=== PATIENT | female | born 1930 | race Caucasian/White ===

== ENCOUNTER 2016-04-25 10:41 | Day surgery (SDC) | payer MEDICARE, OTHER ==
[2016-04-25] MEDS ORDERED: LACTATED RINGERS 1,000 ML IV ONE ×2 (11:20→14:53)
[2016-04-25] MEDS ORDERED: ceFAZolin 1 GM VIAL ONE (11:43)
[2016-04-25] MEDS ORDERED: MIDAZOLAM 2 MG/2 ML VIAL IVP ONE (14:00)
[2016-04-25] MEDS ORDERED: LIDOCAINE-MPF 2% 5 ML VIAL IM ONE (14:00)
[2016-04-25] MEDS ORDERED: DEXAMETHASONE 4 MG/ML VIAL IVP ONE (14:00)
[2016-04-25] MEDS ORDERED: PROPOFOL 200 MG/20 ML VIAL IVP ONE (14:00)
[2016-04-25] MEDS ORDERED: BUPIVACAINE 0.25% PF 30 ML VIAL SUBQ ONE (14:00)
[2016-04-25] MEDS ORDERED: ONDANSETRON 4 MG/2 ML VIAL IVP ONE (14:00)
[2016-04-25] MEDS: fentaNYL 100 MCG/2 ML VIAL ONE ×3 (15:48→16:22)
[2016-04-25] MEDS ORDERED: KETOROLAC 15 MG/ML VIAL ONE (16:08)
[2016-04-25] MEDS ORDERED: HYDROcod/ACETAM 5/325 MG TABLET ONE (16:45)
== END 2016-04-25 10:42 | disposition home or self-care (01) ==
PROC: 0PSJ04Z Reposition Left Radius with Internal Fixation Device, Open Approach (ICD-10-PCS; principal; 2016-04-25 12:00)
DX: S52.532A Colles' fracture of left radius, initial encounter for closed fracture (principal); I10 Essential (primary) hypertension; M81.0 Age-related osteoporosis without current pathological fracture; R73.01 Impaired fasting glucose
CPT/HCPCS: 25609; A9270; J7120

== ENCOUNTER 2017-02-09 11:00 | Outpatient (CLI) | payer MEDICARE, OTHER ==
--- NOTE | 2017-02-12 13:46 | Mammography Report ---
DIGITAL SCREENING MAMMOGRAM: 02/09/2017 CLINICAL INDICATION: An 86-year-old for screening. COMPARISON: 12/2015, 04/2014, 04/2013, 02/2010 TECHNIQUE: Routine CC and MLO projections were obtained of the breasts. FINDINGS: The breasts again demonstrate heterogeneously dense fibroglandular parenchyma bilaterally. Coarse and punctate, typically benign calcifications are present. No suspicious masses, clustered microcalcifications, or regions of architectural distortion are identified. IMPRESSION: BENIGN FINDINGS. RECOMMENDATION: Routine annual screening unless otherwise clinically indicated. BIRADS CATEGORY 2 - BENIGN FINDINGS. STANDARD QUALIFYING STATEMENTS 1. This examination was reviewed with the aid of Computer-Aided Detection (CAD). 2. A negative or benign imaging report should not delay biopsy if clinically suspicious findings are present. Consider surgical consultation if warranted. More than 5% of cancers are not identified by i maging. 3. Dense breasts may obscure an underlying neoplasm. JOB #: [id number] EXT JOB #:[id number]
== END 2017-02-09 11:01 | disposition home or self-care (01) ==
LOC: DI.N 11:00
PROVIDERS: ATTEND Family Medicine
DX: Z12.31 Encounter for screening mammogram for malignant neoplasm of breast (principal)
CPT/HCPCS: 77067

== ENCOUNTER 2017-08-28 08:00 | Outpatient (CLI) | payer MEDICARE, OTHER ==
[2017-08-28 13:17] LABS: ALBUMIN 3.6 g/dL (3.2-5.5); ALKALINE PHOSPHATASE 40 IU/L (42-121); ALT ALANINE AMINOTRANSFERASE 28 IU/L (10-60); AST ASPARTATE AMINOTRANSFERASE 30 IU/L (10-42); BUN - BLOOD UREA NITROGEN 13 mg/dL (6-20); CALCIUM 9.3 mg/dL (8.5-10.3); CARBON DIOXIDE - CO2 27 mmol/L (21-32); CHLORIDE 107 mmol/L (101-111); CHOL/HDL RATIO 2.5 (<4.4); CHOLESTEROL 158 mg/dL; CREATININE 0.6 mg/dL (0.4-1.0); GFR - MDRD 95 (>89); GLUCOSE 105 mg/dL (70-100); HDL CHOLESTEROL 64 mg/dL; LDL CHOLESTEROL,CALCULATED 77 mg/dL; LDL/HDL RATIO 1.2 (<4.4); SODIUM 139 mmol/L (135-145); TOTAL PROTEIN 7.3 g/dL (6.7-8.2); VLDL CHOLESTEROL 17 mg/dL
[2017-08-28 19:50] LABS: HB2 TOTAL 13.6 g/dL; HEMOGLOBIN A1C 0.48 g/dL; HEMOGLOBIN A1C % 5.4 % (4.6-6.2)
== END 2017-08-28 08:01 | disposition home or self-care (01) ==
LOC: LAB.WCP 08:00
PROVIDERS: ATTEND Family Medicine
DX: Z00.00 Encounter for general adult medical examination without abnormal findings (principal); I10 Essential (primary) hypertension; R73.01 Impaired fasting glucose; Z83.79 Family history of other diseases of the digestive system; D64.9 Anemia, unspecified
CPT/HCPCS: 36415; 80053; 80061; 83036; 83721

== ENCOUNTER 2018-03-14 10:21 | Outpatient (CLI) | payer MEDICARE, OTHER ==
--- NOTE | 2018-03-15 08:14 | Mammography Report ---
Reason: SCREENING MAMMO Procedure Date: 03/14/2018 Accession Number: [id number] / [id number] Procedure: MGN - Screening Mammo Dig Bilat CPT Code: FULL RESULT: EXAM: Screening Mammo Dig Bilat DATE: 03/14/2018 10:47 AM CLINICAL HISTORY: Screening. No reported personal or family history of breast cancer. TECHNIQUE: Bilateral CC and MLO views were obtained. COMPARISON: 02/09/2017 through 05/05/2013 FINDINGS: The breasts demonstrate heterogeneously dense fibroglandular parenchyma bilaterally. Bilateral breasts: There are no suspicious masses, calcifications or areas of distortion. IMPRESSION: Negative examination RECOMMENDATION: Routine annual screening unless otherwise clinically indicated. BI-RADS CATEGORY 1: Negative STANDARD QUALIFYING STATEMENTS: 1. This examination was reviewed with the aid of Computer-Aided Detection (CAD). 2. A negative or benign imaging report should not preclude biopsy if clinically suspicious findings are present. 3. Dense breasts may obscure an underlying neoplasm. 4. This examination was reviewed without the aid of 3D breast imaging (tomosynthesis).
== END 2018-03-14 10:22 | disposition home or self-care (01) ==
LOC: DI.N 10:21
DX: Z12.31 Encounter for screening mammogram for malignant neoplasm of breast (principal)
CPT/HCPCS: 77067

== ENCOUNTER 2019-04-15 09:59 | Outpatient (CLI) | payer MEDICARE, OTHER ==
--- NOTE | 2019-04-15 13:14 | Mammography Report ---
Reason: ROUTINE MAMMO Procedure Date: 04/15/2019 Accession Number: [id number] / [id number] Procedure: MGN - Screening Mammo Dig Bilat CPT Code: Final Report FULL RESULT: EXAM: Screening Mammo Dig Bilat DATE: 04/15/2019 10:22 AM CLINICAL HISTORY: Routine screening TECHNIQUE: (B) - Bilateral CC and MLO views were obtained. COMPARISON: 03/14/2018, 02/09/2017, 01/04/2016, 05/15/2014, 05/05/2013, 03/07/2010. PARENCHYMAL PATTERN: (VD) - The breasts demonstrate extremely dense parenchyma bilaterally, limiting the sensitivity of mammography. FINDINGS: No significant interval change. There are no suspicious masses, calcifications, or areas of distortion. Benign-appearing predominantly vascular calcifications are stable. IMPRESSION: Negative examination. BI-RADS category 1. RECOMMENDATION: (ANNUAL) - Recommend routine annual screening mammography. BI-RADS CATEGORY: (1) - Negative. STANDARD QUALIFYING STATEMENTS: 1. This examination was not reviewed with the aid of Computer-Aided Detection (CAD). 2. A negative or benign imaging report should not preclude biopsy if clinically suspicious findings are present. 3. Dense breasts may obscure an underlying neoplasm. 4. This examination was reviewed without the aid of 3D breast imaging (tomosynthesis).
== END 2019-04-15 10:00 | disposition home or self-care (01) ==
LOC: DI.N 09:59
DX: Z12.31 Encounter for screening mammogram for malignant neoplasm of breast (principal)
CPT/HCPCS: 77067

== ENCOUNTER 2020-07-12 08:00 | Outpatient (CLI) | payer MEDICARE, OTHER ==
[2020-07-12 11:57] LABS: BASOPHILS % (AUTO) 0.6 %; EOSINOPHILS # (AUTO) 0.1 10^3/uL (0.0-0.7); EOSINOPHILS % (AUTO) 1.9 %; HCT - HEMATOCRIT 41.3 % (37.0-47.0); HGB - HEMOGLOBIN 13.3 g/dL (12.0-16.0); LYMPHOCYTES # (AUTO) 1.7 10^3/uL (1.5-3.5); LYMPHOCYTES % (AUTO) 27.4 %; MEAN CORPUSCULAR HEMOGLOBIN 32.8 pg (27.0-31.0); MEAN CORPUSCULAR HGB CONC 32.2 g/dL (32.0-36.0); MEAN CORPUSCULAR VOLUME 101.7 fL (81.0-99.0); MEAN PLATELET VOLUME 10.4 fL (7.9-10.8); MONOCYTES # (AUTO) 0.5 10^3/uL (0.0-1.0); MONOCYTES % (AUTO) 7.9 %; NEUTROPHILS # (AUTO) 3.8 10^3/uL (1.5-6.6); NEUTROPHILS % (AUTO) 61.9 %; PLT - PLATELET COUNT 171 10^3/uL (130-450); RED BLOOD COUNT 4.06 10^6/uL (4.20-5.40); RED CELL DISTRIBUTION WIDTH 13.7 % (12.0-15.0); WHITE BLOOD COUNT 6.2 x10^3/uL (4.8-10.8)
[2020-07-12 12:29] LABS: ESTIMATED AVERAGE GLUCOSE 111 mg/dL (70-100); HEMOGLOBIN A1c% 5.5 % (4.27-6.07)
[2020-07-12 13:18] LABS: ALBUMIN 3.9 g/dL (3.2-5.5); ALBUMIN/GLOBULIN RATIO 1.1 (1.0-2.2); ALKALINE PHOSPHATASE 50 IU/L (42-121); ALT ALANINE AMINOTRANSFERASE 42 IU/L (10-60); AST ASPARTATE AMINOTRANSFERASE 43 IU/L (10-42); BILIRUBIN,TOTAL 0.6 mg/dL (0.2-1.0); BUN - BLOOD UREA NITROGEN 13 mg/dL (6-20); CALCIUM 9.6 mg/dL (8.5-10.3); CARBON DIOXIDE - CO2 28 mmol/L (21-32); CHLORIDE 109 mmol/L (101-111); CHOL/HDL RATIO 2.4 (<4.4); CHOLESTEROL 172 mg/dL; CREATININE 0.7 mg/dL (0.4-1.0); GFR - MDRD 79 (>89); GLUCOSE 105 mg/dL (70-100); HDL CHOLESTEROL 71 mg/dL; LDL CHOLESTEROL,CALCULATED 85 mg/dL; LDL/HDL RATIO 1.2 (<4.4); POTASSIUM 3.6 mmol/L (3.5-5.0); SODIUM 144 mmol/L (135-145); TOTAL PROTEIN 7.6 g/dL (6.7-8.2); TRIGLYCERIDES 82 mg/dL; VLDL CHOLESTEROL 16 mg/dL
== END 2020-07-12 23:59 | disposition home or self-care (01) ==
LOC: LAB.WCP 08:00
PROVIDERS: ATTEND Family Medicine
DX: Z00.00 Encounter for general adult medical examination without abnormal findings (principal); R73.01 Impaired fasting glucose; D64.9 Anemia, unspecified; I10 Essential (primary) hypertension
CPT/HCPCS: 36415; 80053; 80061; 83036; 83721; 85025

== ENCOUNTER 2021-01-18 10:22 | Outpatient (CLI) | payer MEDICARE, OTHER ==
--- NOTE | 2021-01-27 00:07 | XRAY Report ---
PROCEDURE: Abdomen 2 View X-Ray INDICATIONS: CONSTIPATION TECHNIQUE: 1 view of the abdomen were acquired. Images became available for interpretation on 2020. COMPARISON: None FINDINGS: Surgical changes and devices: None. Bowel: No pneumoperitoneum. The bowel gas pattern demonstrates significant colonic stool. Soft tissues: No masses; visualized solid organ contours appear normal in size. No suspicious abdom inal calcifications. Bones: No suspicious bony abnormalities. Mild leftward scoliotic curvature. IMPRESSION: Significant colonic stool consistent with constipation. No obstruction. Reviewed by: Qiana Montana MD on 01/27/2021 12:05 AM PDT Approved by: Qiana Montana MD on 01/27/2021 12:05 AM PDT Station ID: [id number]
== END 2021-01-18 23:59 ==
LOC: DI.N 10:22
PROVIDERS: ATTEND Physician Assistant Medical
DX: K59.00 Constipation, unspecified (principal)

== ENCOUNTER 2021-04-12 10:28 | Outpatient (CLI) | payer MEDICARE, OTHER ==
[2021-04-12 18:12] LABS: BASOPHILS % (AUTO) 0.6 %; EOSINOPHILS # (AUTO) 0.1 10^3/uL (0.0-0.7); EOSINOPHILS % (AUTO) 1.9 %; HCT - HEMATOCRIT 41.2 % (37.0-47.0); HGB - HEMOGLOBIN 13.1 g/dL (12.0-16.0); LYMPHOCYTES # (AUTO) 1.3 10^3/uL (1.5-3.5); LYMPHOCYTES % (AUTO) 20.7 %; MEAN CORPUSCULAR HEMOGLOBIN 33.2 pg (27.0-31.0); MEAN CORPUSCULAR HGB CONC 31.8 g/dL (32.0-36.0); MEAN CORPUSCULAR VOLUME 104.6 fL (81.0-99.0); MEAN PLATELET VOLUME 10.8 fL (7.9-10.8); MONOCYTES # (AUTO) 0.5 10^3/uL (0.0-1.0); MONOCYTES % (AUTO) 8.4 %; NEUTROPHILS # (AUTO) 4.3 10^3/uL (1.5-6.6); NEUTROPHILS % (AUTO) 68.2 %; PLT - PLATELET COUNT 148 10^3/uL (130-450); RED BLOOD COUNT 3.94 10^6/uL (4.20-5.40); RED CELL DISTRIBUTION WIDTH 14.2 % (12.0-15.0); WHITE BLOOD COUNT 6.3 x10^3/uL (4.8-10.8)
[2021-04-12 18:40] LABS: ALBUMIN 3.6 g/dL (3.2-5.5); BILIRUBIN,TOTAL 0.8 mg/dL (0.2-1.0); CALCIUM 9.2 mg/dL (8.5-10.3); CREATININE 0.8 mg/dL (0.4-1.0); POTASSIUM 3.9 mmol/L (3.5-5.0); TOTAL PROTEIN 7.2 g/dL (6.7-8.2)
[2021-04-12 18:43] LABS: THYROID STIMULATING HORMONE 2.28 uIU/mL (0.34-5.60)
[2021-04-12 18:45] LABS: FREE T3 2.94 pg/mL (2.5-3.9); FREE T4 (FREE THYROXINE) 0.89 ng/dL (0.58-1.64)
== END 2021-04-12 10:29 | disposition home or self-care (01) ==
LOC: LAB.N 10:28
PROVIDERS: ATTEND Family Medicine
DX: R19.4 Change in bowel habit (principal); R63.4 Abnormal weight loss
CPT/HCPCS: 36415; 80053; 84439; 84443; 84481; 85025

== ENCOUNTER 2021-10-17 12:59 | Emergency (ER) | payer MEDICARE, OTHER ==
[2021-10-17 13:43] LABS: BASOPHILS % (AUTO) 0.3 %; HCT - HEMATOCRIT 39.6 % (37.0-47.0); HGB - HEMOGLOBIN 13.3 g/dL (12.0-16.0); LYMPHOCYTES # (AUTO) 1.3 10^3/uL (1.5-3.5); MEAN CORPUSCULAR HEMOGLOBIN 33.4 pg (27.0-31.0); MEAN CORPUSCULAR HGB CONC 33.6 g/dL (32.0-36.0); MEAN CORPUSCULAR VOLUME 99.5 fL (81.0-99.0); MEAN PLATELET VOLUME 9.5 fL (7.9-10.8); MONOCYTES # (AUTO) 0.6 10^3/uL (0.0-1.0); MONOCYTES % (AUTO) 5.9 %; NEUTROPHILS # (AUTO) 8.8 10^3/uL (1.5-6.6); NEUTROPHILS % (AUTO) 81.2 %; PLT - PLATELET COUNT 164 10^3/uL (130-450); RED BLOOD COUNT 3.98 10^6/uL (4.20-5.40); RED CELL DISTRIBUTION WIDTH 13.3 % (12.0-15.0); WHITE BLOOD COUNT 10.9 x10^3/uL (4.8-10.8)
[2021-10-17 13:50] LABS: INR 1.1 (0.8-1.2); PT - PROTHROMBIN TIME 12.1 secs (9.9-12.6)
[2021-10-17 13:55] LABS: ALBUMIN 3.7 g/dL (3.2-5.5); BILIRUBIN,TOTAL 0.7 mg/dL (0.2-1.0); CALCIUM 9.1 mg/dL (8.5-10.3); CREATININE 0.7 mg/dL (0.4-1.0); POTASSIUM 3.7 mmol/L (3.5-5.0); TOTAL PROTEIN 7.3 g/dL (6.7-8.2)
--- NOTE | 2021-10-17 15:18 | ED Physician Documentation ---
PD HPI GI BLEED - Stated complaint Stated Complaint: FEMALE GI - Chief complaint Chief Complaint: Abd Pain - History obtained from History obtained from: Patient - History of Present Illness Timing - onset: Today (onset at 4 am of lower abd cramping associated with loose stool and red blood.) Timing - duration: Hours Timing - details: Abrupt onset, Still present Associated symptoms: BRBPR, Abdominal pain (lower cramping). No: Vomiting, Coffee ground emesis, Black/tarry stool, Chest pain Contributing factors: No: Sick contact, Bad food, Anticoagulated Improved by: BM (lower cramping before rectal movement of some blood and mucous. not consistent pain.) Worsened by: No: Moving, Position, Palpation Similar symptoms before: Has not had sx before Recently seen: Clinic (went to Walk In and was referred to ER for eval.) Review of Systems Constitutional: denies: Fever, Chills Nose: denies: Rhinorrhea / runny nose, Congestion Throat: denies: Sore throat Respiratory: denies: Cough PD PAST MEDICAL HISTORY - Past Medical History Cardiovascular: Hypertension Respiratory: None Endocrine/Autoimmune: None GI: None : None HEENT: Glaucoma, Chronic hearing loss Psych: Depression Musculoskeletal: Osteoarthritis Derm: None - Past Surgical History Past Surgical History: Yes General: Colonoscopy HEENT: Cataracts, Other - Present Medications Home Medications: Ambulatory Orders Medication Instructions Recorded Confirmed Losartan [Cozaar] 50 mg PO DAILY 05/10/14 05/10/14 Raloxifene [Evista] 60 mg PO DAILY 05/10/14 04/25/16 Ondansetron Odt [Zofran Odt] 4 mg TL Q6H PRN #10 tablet 05/11/14 Brinzolamide 1% Ophth Drops [Azopt 1 drops EACHEYE TID 04/25/16 04/25/16 1% Ophth Drops] Felodipine [Felodipine ER] 10 mg ORAL DAILY 04/25/16 04/25/16 HYDROcod/ACETAM 5/325 [[place] 5/325] 1 tab ORAL Q6HR PRN 04/25/16 04/25/16 Latanoprost 0.005% Ophth Drops 1 drops EACHEYE DAILY 04/25/16 04/25/16 [Xalatan Ophth Drops] Propylene Glycol/Peg 400 [Systane 1 drops EACHEYE TID 04/25/16 04/25/16 Ultra 0.4-0.3% Eye Drp] Amox/Clav 875/125 [Augmentin] 1 each PO Q12H #10 tablet 10/17/21 HYDROcod/ACETAM 5/325 [[place] 5/325] 1 ea PO Q6H PRN #12 tablet 10/17/21 Naproxen 250 mg PO BID 5 Days #10 tablet 10/17/21 - Allergies Allergies/Adverse Reactions: Allergies Allergy/AdvReac Type Severity Reaction Status Date / Time No Known Drug Allergies Allergy Verified 10/17/21 13:26 - Social History Does the pt smoke?: No Smoking Status: Never smoker - Immunizations Immunizations are current?: No - POLST Patient has POLST: No PD ED PE NORMAL - Vitals Vital signs reviewed: Yes - General General: Alert and oriented X 3, No acute distress, Well developed/nourished - Neck Neck: Supple, no meningeal sign, No adenopathy - Cardiac Cardiac: RRR, No murmur - Respiratory Respiratory: Clear bilaterally - Abdomen Abdomen: Normal bowel sounds, Soft, Non distended, No organomegaly, Other (minimal tenderness lower abd more to the left. No guarding nor percussion tender. Anoscopy shows small internal hemorrhoid without bleeding. Distal colon inflammed with speckled blood spots. Has vascular pink color to wall. ) Results - Vitals Vitals: Vital Signs - 24 hr 10/17/21 10/17/21 10/17/21 13:19 15:37 16:54 Temperature 36.3 C L Heart Rate 83 75 77 Respiratory 18 14 14 Rate Blood Pressure 137/79 H 156/80 H 151/75 H O2 Saturation 97 100 100 10/17/21 18:01 Temperature Heart Rate 74 Respiratory 18 Rate Blood Pressure 145/83 H O2 Saturation 100 Oxygen O2 Source Room air - Labs Labs: Laboratory Tests 10/17/21 10/17/21 10/17/21 13:31 13:31 13:31 WBC 10.9 H RBC 3.98 L Hgb 13.3 Hct 39.6 MCV 99.5 H MCH 33.4 H MCHC 33.6 RDW 13.3 Plt Count 164 MPV 9.5 Neut # (Auto) 8.8 H Lymph # (Auto) 1.3 L [place] # (Auto) 0.6 Eos # (Auto) 0.0 Baso # (Auto) 0.0 Absolute Nucleated RBC 0.00 Nucleated RBC % 0.0 PT 12.1 INR 1.1 Sodium Potassium Chloride Carbon Dioxide Anion Gap BUN Creatinine Estimated GFR (MDRD) Glucose Calcium Total Bilirubin AST ALT Alkaline Phosphatase Total Protein Albumin Globulin Albumin/Globulin Ratio Lipase Blood Type O POSITIVE Antibody Screen NEGATIVE 10/17/21 13:31 WBC RBC Hgb Hct MCV MCH MCHC RDW Plt Count MPV Neut # (Auto) Lymph # (Auto) [place] # (Auto) Eos # (Auto) Baso # (Auto) Absolute Nucleated RBC Nucleated RBC % PT INR Sodium 141 Potassium 3.7 Chloride 105 Carbon Dioxide 28 Anion Gap 8.0 BUN 12 Creatinine 0.7 Estimated GFR (MDRD) 79 L Glucose 142 H Calcium 9.1 Total Bilirubin 0.7 AST 38 ALT 31 Alkaline Phosphatase 39 L Total Protein 7.3 Albumin 3.7 Globulin 3.6 Albumin/Globulin Ratio 1.0 Lipase 49 Blood Type Antibody Screen - Rads (name of study) abd/pelvic CT Radiology: Prelim report reviewed (IMPRESSION: ), See rad report PD MEDICAL DECISION MAKING - ED course Complexity details: reviewed results (IMPRESSION: ), re-evaluated patient (stable vitals. Good blood count. has had small red blood output here in ER, but only about 5-10 ml. Anoscopy shows inflammed distal colon with vascular color. Small internal hemorrhoid but does not appear bleeding. ), considered differential (having lower abd pain and red blood per rectum. Consider colitis, diverticulitis, versus vascular like polyp/tumor with bleeding. ), d/w patient ED course: IMPRESSION: 1. Left colon long segment colitis. This could be due to infectious/inflammatory etiology. Ischemic colitis is felt to be less likely. Follow-up colonoscopy would be helpful if not recently performed. 2. Hypodense foci in the body and neck of the pancreas. Largest measuring 1.5 x 0.6 cm. These could represent IPMN. This can be further evaluated with MRI of the pancreas if clinically indicated in this older patient. Departure - Departure Disposition: 01 Home, Self Care Clinical Impression: Hematochezia, Colitis Condition: Stable Record reviewed to determine appropriate education?: Yes Prescriptions: Amox/Clav 875/125 [Augmentin] 1 each PO Q12H #10 tablet Naproxen 250 mg PO BID 5 Days #10 tablet HYDROcod/ACETAM 5/325 [[place] 5/325] 1 ea PO Q6H PRN #12 tablet PRN Reason: Pain Comments: IMPRESSION: 1. Left colon long segment colitis. This could be due to infectious/inflammatory etiology. Ischemic colitis is felt to be less likely. Follow-up colonoscopy would be helpful if not recently performed. 2. Hypodense foci in the body and neck of the pancreas. Largest measuring 1.5 x 0.6 cm. These could represent IPMN. This can be further evaluated with MRI of the pancreas if clinically indicated in this older patient. Your CT scan shows an area of colitis. We will treat this with anti- inflammatories and antibiotics. This would be the obvious source of bleeding and typically is more diffuse weeping of blood as opposed to a particular blood vessel. Your blood count and vital signs are good at this time. You would expect some bleeding still with bowel movements while the colitis is improving. Return to the ER if you have significantly worsening bleeding or in particular for feeling generally weak and lightheaded. Otherwise it would be good to recheck in a couple of days with either your primary care, the walk-in clinic, or back in the ER. Tylenol if needed for pains or add hydrocodone if needed for worse pain. On the CT scan, the radiologist also makes note of a unusual small appearance in the pancreas. They suggest this can be further evaluated with MRI of the pancreas in the near future to ensure its not a tumor type lesion. This would need to be arranged by your primary care on an outpatient basis. I transmitted your prescriptions to your pharmacy. I am prescribing a short course of narcotic pain medication for you. These are potentially dangerous and addictive medications that should be used carefully. These medications may constipate you. Take an [id number]-nkiyxtm stool softener such as docusate twice daily with plenty of water while taking these medications. If you go 24 hours without a bowel movement, take [id number]-[id number] MiraLAX, per package instructions. Do not drink or drive while taking these medications. If you received narcotic or sedating medications while in the emergency department do not drive for 24 hours. Store this medication in a safe, secure place and out of reach of children. It is a violation of federal law to give or sell this medication to another person or to use in a manner other than prescribed. The ED will not refill narcotic prescriptions, including prescriptions lost or stolen. You can dispose of unwanted medications at the Medical Staff Physician's office or at several pharmacies such as [facility]. Discharge Date/Time: 10/17/21 18:03
--- NOTE | 2021-10-17 17:23 | CT Report ---
PROCEDURE: Abdomen/Pelvis WO INDICATIONS: lower abd cramps/pain and BRBPR TECHNIQUE: Noncontrast 5 mm thick sections acquired from the diaphragms to the symphysis. 5 mm coronal and sagi ttal reformats were then performed. For radiation dose reduction, the following was used: automated exposure control, adjustment of mA and/or kV according to patient size. COMPARISON: Abdominal radiographs 01/18/2021. FINDINGS: Image quality: Excellent. Evaluation of the solid parenchymal organs is limited without IV contrast. ABDOMEN: Lung bases: No pleural effusion. Mild fibrosis. Heart size is normal. Solid organs: Liver and spleen are normal in size. Gallbladder is unremarkable. Hypodensity in the body of the pancreas measuring 0.8 cm. Hypodensity in the neck of the pancreas measuring 1.5 x 0.6 cm . No peripancreatic fluid collection. No adrenal nodules. Kidneys are normal in size, without hydron ephrosis or nephrolithiasis. Small low-density left renal cyst. Peritoneum and bowel: There is thickening and stranding surrounding extending from the sigmoid colon to the mid transverse colon. This is consistent with a colitis. There are a few colonic diverticuli. No small bowel obstruction. No pneumatosis intestinalis. No portal venous gas. No pneumoperitoneum. N o ascites. Nodes and vessels: No retroperitoneal or mesenteric adenopathy by size criteria. Aorta and inferior vena cava are normal in caliber. Miscellaneous: No ventral hernias. PELVIS: Genitourinary: Bladder wall thickness is normal. Anteverted uterus. Miscellaneous: No inguinal hernias or adenopathy. Bones: No suspicious bony lesions. Scoliosis. No vertebral body compression fractures. IMPRESSION: 1. Left colon long segment colitis. This could be due to infectious/inflammatory etiology. Ischemic c olitis is felt to be less likely. Follow-up colonoscopy would be helpful if not recently performed. 2. Hypodense foci in the body and neck of the pancreas. Largest measuring 1.5 x 0.6 cm. These could r epresent IPMN. This can be further evaluated with MRI of the pancreas if clinically indicated in this older patient. Results were communicated to Dr. Carlos Manuel Flor at 10/17/2021 5:16 PM PDT. Reviewed by: Ady Mederos MD on 10/17/2021 5:21 PM PDT Approved by: Ady Mederos MD on 10/17/2021 5:21 PM PDT Station ID: [id number]
[2021-10-17] MEDS ORDERED: HYDROcod/ACETAM 5/325 MG TABLET PO STA (17:27)
[2021-10-17] MEDS ORDERED: AMOX/CLAV 875 MG/125 MG TABLET PO STA (17:27)
[2021-10-17] MEDS ORDERED: NAPROXEN 250 MG TABLET PO STA (17:28)
[2021-10-17 18:03] VITALS: BP 145/83
== END 2021-10-17 18:03 | disposition home or self-care (01) ==
LOC: ED 12:59
DX: K52.9 Noninfective gastroenteritis and colitis, unspecified (principal); K92.1 Melena; I10 Essential (primary) hypertension
CPT/HCPCS: 36415; 74176; 80053; 83690; 85025; 85610; 86850; 86900; 86901; 99284; A9270

== ENCOUNTER 2021-10-19 13:44 | Outpatient (CLI) | payer MEDICARE, OTHER ==
[2021-10-19 17:46] LABS: BASOPHILS % (AUTO) 0.2 %; EOSINOPHILS # (AUTO) 0.2 10^3/uL (0.0-0.7); EOSINOPHILS % (AUTO) 1.1 %; HCT - HEMATOCRIT 36.6 % (37.0-47.0); HGB - HEMOGLOBIN 12.4 g/dL (12.0-16.0); LYMPHOCYTES # (AUTO) 2.1 10^3/uL (1.5-3.5); MEAN CORPUSCULAR HGB CONC 33.9 g/dL (32.0-36.0); MEAN CORPUSCULAR VOLUME 100.3 fL (81.0-99.0); MEAN PLATELET VOLUME 10.5 fL (7.9-10.8); MONOCYTES # (AUTO) 0.9 10^3/uL (0.0-1.0); MONOCYTES % (AUTO) 5.6 %; NEUTROPHILS % (AUTO) 79.5 %; PLT - PLATELET COUNT 176 10^3/uL (130-450); RED BLOOD COUNT 3.65 10^6/uL (4.20-5.40); RED CELL DISTRIBUTION WIDTH 13.2 % (12.0-15.0); WHITE BLOOD COUNT 16.3 x10^3/uL (4.8-10.8)
[2021-10-19 18:26] LABS: ALBUMIN 3.4 g/dL (3.2-5.5); BILIRUBIN,TOTAL 0.8 mg/dL (0.2-1.0); CALCIUM 8.9 mg/dL (8.5-10.3); CREATININE 1.1 mg/dL (0.4-1.0); POTASSIUM 3.8 mmol/L (3.5-5.0); TOTAL PROTEIN 6.8 g/dL (6.7-8.2)
== END 2021-10-19 13:45 | disposition home or self-care (01) ==
LOC: LAB.N 13:44
PROVIDERS: ATTEND Physician Assistant
DX: K92.2 Gastrointestinal hemorrhage, unspecified (principal); K86.9 Disease of pancreas, unspecified
CPT/HCPCS: 36415; 80053; 82378; 85025; 86301

== ENCOUNTER 2021-10-21 11:15 | Emergency (ER) | payer MEDICARE, OTHER ==
[2021-10-21 11:50] LABS: BASOPHILS % (AUTO) 0.4 %; EOSINOPHILS # (AUTO) 0.2 10^3/uL (0.0-0.7); EOSINOPHILS % (AUTO) 1.6 %; HCT - HEMATOCRIT 38.6 % (37.0-47.0); HGB - HEMOGLOBIN 13.1 g/dL (12.0-16.0); LYMPHOCYTES # (AUTO) 1.1 10^3/uL (1.5-3.5); LYMPHOCYTES % (AUTO) 11.8 %; MEAN CORPUSCULAR HGB CONC 33.9 g/dL (32.0-36.0); MEAN CORPUSCULAR VOLUME 100.3 fL (81.0-99.0); MEAN PLATELET VOLUME 9.2 fL (7.9-10.8); MONOCYTES # (AUTO) 0.6 10^3/uL (0.0-1.0); MONOCYTES % (AUTO) 6.4 %; NEUTROPHILS # (AUTO) 7.3 10^3/uL (1.5-6.6); NEUTROPHILS % (AUTO) 79.4 %; PLT - PLATELET COUNT 245 10^3/uL (130-450); RED BLOOD COUNT 3.85 10^6/uL (4.20-5.40); RED CELL DISTRIBUTION WIDTH 13.3 % (12.0-15.0); WHITE BLOOD COUNT 9.2 x10^3/uL (4.8-10.8)
[2021-10-21 11:55] LABS: PT - PROTHROMBIN TIME 11.2 secs (9.9-12.6)
[2021-10-21 12:05] LABS: ALBUMIN 3.7 g/dL (3.2-5.5); BILIRUBIN,TOTAL 0.7 mg/dL (0.2-1.0); CALCIUM 9.3 mg/dL (8.5-10.3); CREATININE 0.8 mg/dL (0.4-1.0); TOTAL PROTEIN 7.5 g/dL (6.7-8.2)
--- NOTE | 2021-10-21 12:27 | ED Physician Documentation ---
PD HPI GI BLEED - Stated complaint Stated Complaint: BLACK STOOL - Chief complaint Chief Complaint: Abd Pain - History obtained from History obtained from: Patient - History of Present Illness Timing - onset: How many days ago (5-6) Timing - duration: Days (5-6) Timing - details: Gradual onset, Still present (She states less cramping and no blood in her stool for the last 2 days. She has noticed dark green stool with question of black since yesterday. Stool is soft without overt diarrhea. Cramps are still intermittent lower.) Associated symptoms: Black/tarry stool (dark black to green.). No: Fever, Near syncope / syncope Contributing factors: Recent antibiotics, NSAID use. No: Sick contact, Bad food Recently seen: Emergency Dept (seen for red blood and lower abd cramps 5-6 days ago, with CT showing colitis and some mild blood per rectum. Was instructed to return if needed. Saw PCP 2 days ago and was feeling some improved and bleeding stopped. Today noted dark stools and concerned about bleeding. Still with lower cramps.) Review of Systems Constitutional: denies: Fever, Chills, Myalgias Nose: denies: Rhinorrhea / runny nose, Congestion Throat: denies: Sore throat Respiratory: denies: Cough GI: reports: Abdominal Pain, Nausea, Bloody / black stool. denies: Vomiting, Diarrhea Neurologic: reports: Generalized weakness. denies: Focal weakness, Numbness, Near syncope PD PAST MEDICAL HISTORY - Past Medical History Cardiovascular: Hypertension Respiratory: None Endocrine/Autoimmune: None GI: None : None HEENT: Glaucoma, Chronic hearing loss Psych: Depression Musculoskeletal: Osteoarthritis Derm: None - Past Surgical History Past Surgical History: Yes General: Colonoscopy HEENT: Cataracts, Other - Present Medications Home Medications: Ambulatory Orders Medication Instructions Recorded Confirmed Losartan [Cozaar] 50 mg PO DAILY 05/10/14 05/10/14 Raloxifene [Evista] 60 mg PO DAILY 05/10/14 04/25/16 Ondansetron Odt [Zofran Odt] 4 mg TL Q6H PRN #10 tablet 05/11/14 Brinzolamide 1% Ophth Drops [Azopt 1 drops EACHEYE TID 04/25/16 04/25/16 1% Ophth Drops] Felodipine [Felodipine ER] 10 mg ORAL DAILY 04/25/16 04/25/16 HYDROcod/ACETAM 5/325 [[place] 5/325] 1 tab ORAL Q6HR PRN 04/25/16 04/25/16 Latanoprost 0.005% Ophth Drops 1 drops EACHEYE DAILY 04/25/16 04/25/16 [Xalatan Ophth Drops] Propylene Glycol/Peg 400 [Systane 1 drops EACHEYE TID 04/25/16 04/25/16 Ultra 0.4-0.3% Eye Drp] Amox/Clav 875/125 [Augmentin] 1 each PO Q12H #10 tablet 10/17/21 HYDROcod/ACETAM 5/325 [[place] 5/325] 1 ea PO Q6H PRN #12 tablet 10/17/21 Naproxen 250 mg PO BID 5 Days #10 tablet 10/17/21 HYDROcod/ACETAM 5/325 [[place] 5/325] 1 ea PO Q6H PRN #15 tablet 10/21/21 Saccharomyces Boulardii [Florastor] 500 mg PO BIDWM 5 Days #10 cap 10/21/21 - Allergies Allergies/Adverse Reactions: Allergies Allergy/AdvReac Type Severity Reaction Status Date / Time No Known Drug Allergies Allergy Verified 10/21/21 11:29 - Social History Does the pt smoke?: No Smoking Status: Never smoker - Immunizations Immunizations are current?: No - POLST Patient has POLST: No PD ED PE NORMAL - Vitals Vital signs reviewed: Yes - General General: Alert and oriented X 3, No acute distress, Well developed/nourished - Cardiac Cardiac: RRR, No murmur - Respiratory Respiratory: Clear bilaterally - Abdomen Abdomen: Normal bowel sounds, Soft, Non distended, No organomegaly, Other (mild tenderness lower abd without guarding nor percussion tenderness. ) - Female Female : Deferred - Rectal Rectal: Deferred, Other (patient brought stool sample from home from today. It was dark green without look of melena. Guaiac testing negative. ) Results - Vitals Vitals: Vital Signs - 24 hr 10/21/21 10/21/21 11:23 13:16 Temperature 36.6 C Heart Rate 77 65 Respiratory 16 17 Rate Blood Pressure 164/83 H 148/78 H O2 Saturation 100 100 Oxygen O2 Source Room air - Labs Labs: Microbiology 10/21/21 12:41 Occult Blood - Final Stool - Loose Consistency Laboratory Tests 10/21/21 10/21/21 10/21/21 11:41 11:41 11:41 WBC 9.2 RBC 3.85 L Hgb 13.1 Hct 38.6 MCV 100.3 H MCH 34.0 H MCHC 33.9 RDW 13.3 Plt Count 245 MPV 9.2 Neut # (Auto) 7.3 H Lymph # (Auto) 1.1 L [place] # (Auto) 0.6 Eos # (Auto) 0.2 Baso # (Auto) 0.0 Absolute Nucleated RBC 0.00 Nucleated RBC % 0.0 PT 11.2 INR 1.0 Sodium Potassium Chloride Carbon Dioxide Anion Gap BUN Creatinine Estimated GFR (MDRD) Glucose Calcium Total Bilirubin AST ALT Alkaline Phosphatase Total Protein Albumin Globulin Albumin/Globulin Ratio Lipase Blood Type O POSITIVE Antibody Screen NEGATIVE 10/21/21 11:41 WBC RBC Hgb Hct MCV MCH MCHC RDW Plt Count MPV Neut # (Auto) Lymph # (Auto) [place] # (Auto) Eos # (Auto) Baso # (Auto) Absolute Nucleated RBC Nucleated RBC % PT INR Sodium 140 Potassium 4.0 Chloride 103 Carbon Dioxide 28 Anion Gap 9.0 BUN 8 Creatinine 0.8 Estimated GFR (MDRD) 68 L Glucose 153 H Calcium 9.3 Total Bilirubin 0.7 AST 27 ALT 21 Alkaline Phosphatase 49 Total Protein 7.5 Albumin 3.7 Globulin 3.8 Albumin/Globulin Ratio 1.0 Lipase 48 Blood Type Antibody Screen PD MEDICAL DECISION MAKING - ED course Complexity details: reviewed results (H/H same as 4 days ago. Stool without me riley by testing. ), considered differential, d/w patient Departure - Departure Disposition: 01 Home, Self Care Clinical Impression: Bilateral lower abdominal cramping, Colitis Condition: Stable Record reviewed to determine appropriate education?: Yes Prescriptions: Saccharomyces Boulardii [Florastor] 500 mg PO BIDWM 5 Days #10 cap HYDROcod/ACETAM 5/325 [[place] 5/325] 1 ea PO Q6H PRN #15 tablet PRN Reason: Pain Comments: Frequent fluids. Continue usual medications. Your stool is dark green but test negative for blood. Your blood count is good and the same as the other day so no notable blood loss. I think your colitis sounds like it is improving if you are not having blood anymore. It should improve even more over the next few more days. I would have you finish the last day of the antibiotics for the colitis and add in probiotic Florastor twice daily for 5 days. Hold off on the naproxen from previous. Use Tylenol every 4-6 hours for pain or the hydrocodone/acetaminophen if needed for worse pain. Try to reduce the amount of the hydrocodone to just 2 or 3 times daily for the next few days and add in Tylenol instead. Recheck if not fully improved over another few more days and return if worsening. I sent your prescriptions to your pharmacy. Discharge Date/Time: 10/21/21 13:17
[2021-10-21 13:17] VITALS: BP 148/78
== END 2021-10-21 13:17 | disposition home or self-care (01) ==
LOC: ED 11:15
DX: K52.9 Noninfective gastroenteritis and colitis, unspecified (principal)
CPT/HCPCS: 36415; 80053; 82272; 83690; 85025; 85610; 86850; 86900; 86901; 99281; 99283

== ENCOUNTER 2021-11-17 12:41 | Outpatient (CLI) | payer MEDICARE, OTHER ==
[2021-11-17 18:11] LABS: HCT - HEMATOCRIT 39.3 % (37.0-47.0); HGB - HEMOGLOBIN 12.9 g/dL (12.0-16.0); MEAN CORPUSCULAR HEMOGLOBIN 33.7 pg (27.0-31.0); MEAN CORPUSCULAR HGB CONC 32.8 g/dL (32.0-36.0); MEAN CORPUSCULAR VOLUME 102.6 fL (81.0-99.0); RED BLOOD COUNT 3.83 10^6/uL (4.20-5.40); RED CELL DISTRIBUTION WIDTH 14.3 % (12.0-15.0)
[2021-11-17 18:38] LABS: ALBUMIN/GLOBULIN RATIO 1.1 (1.0-2.2); ALKALINE PHOSPHATASE 40 IU/L (42-121); ALT ALANINE AMINOTRANSFERASE 22 IU/L (10-60); AST ASPARTATE AMINOTRANSFERASE 31 IU/L (10-42); BILIRUBIN,TOTAL 0.7 mg/dL (0.2-1.0); BUN - BLOOD UREA NITROGEN 10 mg/dL (6-20); CALCIUM 9.6 mg/dL (8.5-10.3); CARBON DIOXIDE - CO2 30 mmol/L (21-32); CHLORIDE 105 mmol/L (101-111); CREATININE 0.6 mg/dL (0.4-1.0); GFR - MDRD 94 (>89); GLUCOSE 100 mg/dL (70-100); SODIUM 140 mmol/L (135-145); TOTAL PROTEIN 7.5 g/dL (6.7-8.2)
[2021-11-17 18:47] LABS: CRP - C-REACTIVE PROTEIN < 1.0 mg/dL (0-1.0)
== END 2021-11-17 12:42 | disposition home or self-care (01) ==
LOC: DI.N 12:41
PROVIDERS: ATTEND Family Medicine
DX: K52.9 Noninfective gastroenteritis and colitis, unspecified (principal); N17.9 Acute kidney failure, unspecified; K92.2 Gastrointestinal hemorrhage, unspecified
CPT/HCPCS: 36415; 80053; 85027; 85651; 86140

== ENCOUNTER 2021-11-23 12:00 | Outpatient (CLI) | payer MEDICARE, OTHER ==
[~2021-11-23 12:00] MED LIST: GADOBUTROL 7.5 MMOL/7.5 ML VIAL ONE
[2021-11-23] MEDS ORDERED: GADOBUTROL 7.5 MMOL/7.5 ML VIAL IVP ONE (15:25)
--- NOTE | 2021-11-23 16:55 | MRI Report ---
PROCEDURE: Abdomen W/WO INDICATIONS: PANCREATIC LESION CONTRAST: IV CONTRAST: Gadavist ml: 4.8 TECHNIQUE: Coronal ultra fast SE, axial 2D spoiled GE in- and [id number]; axial breath-hold T2 fast SE. Dynam ic axial ultra fast GE during the administration of contrast; post-contrast coronal ultra fast GE or 2D spoiled GE with fat saturation from the hepatic dome to the iliac crests. Optional diffusion weig hted imaging and ADC may be performed. COMPARISON: CT abdomen and pelvis 10/17/2021. FINDINGS: Image quality: Excellent. Lung bases: No basal pleural effusions. Heart size is normal. Solid organs: Liver and spleen are normal in size and enhancement. Gallbladder is unremarkable. Bi liary system is non dilated. There are 4 or 5 T2 hyperintense cysts in the pancreas, (10/5). Largest cyst appears bilobed in the body the pancreas. The largest component measures 1.1 cm, (11/7). No rest ricted diffusion. No suspicious enhancement. No pancreatic ductal dilatation. No adrenal nodules. Both kidneys demonstrate normal size and enhancement, without hydronephrosis. Sm all T2 hyperintense renal cysts. Nodes and vessels: No retroperitoneal or mesenteric adenopathy by size criteria. Aorta and inferior vena cava are normal in size. Bowel and peritoneum: No dilated loops of bowel identified. No edema signal or diffusion in the left abdomen demonstrated. No free fluid. Bones and soft tissues: No ventral hernias. Bone marrow is normal in overall signal. Mild scoliosis . IMPRESSION: 1. Several small T2 hyperintense cysts in the pancreas. No suspicious imaging features demonstrated. Largest cyst measures approximately 1.1 cm in the body the pancreas. -No further imaging follow-up is required for these incidental pancreatic cyst in this elderly patien t. 2. There appears to be improvement of the suspected inflammatory change in the left colon seen on rec ent CT. Reviewed by: Ady Mederos MD on 11/23/2021 4:53 PM PDT Approved by: Ady Mederos MD on 11/23/2021 4:53 PM PDT Station ID: [id number]
== END 2021-11-23 12:01 | disposition home or self-care (01) ==
LOC: DI 12:00
PROVIDERS: ATTEND Physician Assistant
DX: N17.9 Acute kidney failure, unspecified (principal); K86.2 Cyst of pancreas
CPT/HCPCS: 74183; A9585

== ENCOUNTER 2022-02-28 09:55 | Outpatient (CLI) | payer MEDICARE, OTHER ==
[2022-02-28 12:15] LABS: BASOPHILS % (AUTO) 0.7 %; EOSINOPHILS # (AUTO) 0.1 10^3/uL (0.0-0.7); EOSINOPHILS % (AUTO) 1.8 %; HCT - HEMATOCRIT 40.9 % (37.0-47.0); HGB - HEMOGLOBIN 13.5 g/dL (12.0-16.0); LYMPHOCYTES # (AUTO) 1.7 10^3/uL (1.5-3.5); LYMPHOCYTES % (AUTO) 30.2 %; MEAN CORPUSCULAR HEMOGLOBIN 33.3 pg (27.0-31.0); MEAN PLATELET VOLUME 10.4 fL (7.9-10.8); MONOCYTES # (AUTO) 0.5 10^3/uL (0.0-1.0); NEUTROPHILS # (AUTO) 3.3 10^3/uL (1.5-6.6); NEUTROPHILS % (AUTO) 58.1 %; PLT - PLATELET COUNT 186 10^3/uL (130-450); RED BLOOD COUNT 4.05 10^6/uL (4.20-5.40); WHITE BLOOD COUNT 5.7 x10^3/uL (4.8-10.8)
[2022-02-28 12:30] LABS: ALKALINE PHOSPHATASE 43 IU/L (42-121); CALCIUM 9.5 mg/dL (8.5-10.3); CARBON DIOXIDE - CO2 27 mmol/L (21-32); CHLORIDE 105 mmol/L (101-111); CHOLESTEROL 172 mg/dL; GLUCOSE 108 mg/dL (70-100); POTASSIUM 3.9 mmol/L (3.5-5.0); SODIUM 142 mmol/L (135-145)
[2022-02-28 12:41] LABS: THYROID STIMULATING HORMONE 3.31 uIU/mL (0.34-5.60)
[2022-02-28 13:12] LABS: ALBUMIN 3.8 g/dL (3.2-5.5); ALBUMIN/GLOBULIN RATIO 1.1 (1.0-2.2); ALT ALANINE AMINOTRANSFERASE 27 IU/L (10-60); AST ASPARTATE AMINOTRANSFERASE 36 IU/L (10-42); BILIRUBIN,TOTAL 0.7 mg/dL (0.2-1.0); BUN - BLOOD UREA NITROGEN 11 mg/dL (6-20); CHOL/HDL RATIO 2.2 (<4.4); CREATININE 0.7 mg/dL (0.4-1.0); GFR - MDRD 79 (>89); HDL CHOLESTEROL 79 mg/dL; LDL CHOLESTEROL,CALCULATED 83 mg/dL; LDL/HDL RATIO 1.1 (<4.4); TOTAL PROTEIN 7.4 g/dL (6.7-8.2); TRIGLYCERIDES 48 mg/dL; VLDL CHOLESTEROL 10 mg/dL
[2022-02-28 13:35] LABS: ESTIMATED AVERAGE GLUCOSE 114 mg/dL (70-100); HEMOGLOBIN A1c% 5.6 % (4.27-6.07)
== END 2022-02-28 09:56 | disposition home or self-care (01) ==
LOC: LAB.N 09:55
PROVIDERS: ATTEND Family Medicine
DX: I10 Essential (primary) hypertension (principal); F43.21 Adjustment disorder with depressed mood; R73.01 Impaired fasting glucose; M81.0 Age-related osteoporosis without current pathological fracture
CPT/HCPCS: 36415; 80053; 80061; 83036; 83721; 84443; 85025